=== PATIENT | female | born 2000 ===

== ENCOUNTER 2023-07-26 18:32 | Inpatient (IN) | payer BC ==
[2023-07-26 19:58] LABS: BILIRUBIN,URINE NEGATIVE (NEGATIVE); COLOR,URINE YELLOW; GLUCOSE,URINE NEGATIVE (NEGATIVE); KETONES,URINE NEGATIVE (NEGATIVE); LEUKOCYTE ESTERASE,URINE SMALL (NEGATIVE); NITRITE,URINE NEGATIVE (NEGATIVE); OCCULT BLOOD,URINE NEGATIVE (NEGATIVE); PROTEIN,URINE NEGATIVE (NEGATIVE); UROBILINOGEN,URINE 0.2 EU/dL (<2.0)
[2023-07-26 20:09] LABS: APPEARANCE,URINE HAZY
[2023-07-26 20:11] LABS: BASOPHILS PERCENT AUTO 0.1 % (0.0-1.5); EOSINOPHILS ABSOLUTE AUTO 0.1 K/uL (0.0-0.7); EOSINOPHILS PERCENT AUTO 0.7 % (0.0-7.0); HEMATOCRIT 39.1 % (36.0-46.0); LYMPHOCYTES ABSOLUTE AUTO 2.2 K/uL (0.6-2.4); LYMPHOCYTES PERCENT AUTO 20.8 % (16.0-40.0); MEAN CORPUSCULAR HEMOGLOBIN 30.7 pg (27.0-32.0); MEAN CORPUSCULAR HGB CONC 33.2 g/dL (31.0-37.0); MEAN CORPUSCULAR VOLUME 92.2 fL (80.0-98.0); MONOCYTES ABSOLUTE AUTO 1.1 K/uL (0.0-0.8); MONOCYTES PERCENT AUTO 10.5 % (0.0-15.0); NEUTROPHILS ABSOLUTE AUTO 7.2 K/uL (1.4-5.7); NEUTROPHILS PERCENT AUTO 67.9 % (48.0-80.0); NRBC ABSOLUTE 0 K/uL; PLATELET COUNT,PLT 202 K/uL (150-400); RED BLOOD CELL COUNT 4.24 M/uL (4.30-5.90); WHITE BLOOD CELL COUNT,WBC 10.63 K/uL (4.0-11.0)
[2023-07-26 20:19] LABS: CREATININE,URINE RAND 37.4 mg/dL
[2023-07-26 20:20] LABS: PROTEIN,URINE RANDOM < 6.0 mg/dL (<11.9)
[2023-07-26 20:39] LABS: A/G RATIO 0.8 (0.9-1.6); ALBUMIN 2.8 g/dL (3.4-5.0); BILIRUBIN TOTAL 0.3 mg/dL (0.2-1.0); CARBON DIOXIDE,CO2 20.8 mmol/L (21.0-32.0); CREATININE 0.6 mg/dL (0.6-1.0); EST CRCL DRUG DOSING (CG) 145.85 mL/min; POTASSIUM,K 3.8 mmol/L (3.5-5.1); PROTEIN TOTAL,TP 6.4 g/dL (6.4-8.2); URIC ACID 3.9 mg/dL (2.6-7.2)
[2023-07-26] MEDS ORDERED: Misoprostol 200 MCG Tab PO PRN (21:12)
[2023-07-26] MEDS ORDERED: Sodium Chloride 0.9% 2.5 ML Syringe FLUSH PRN (21:12)
[2023-07-26] MEDS ORDERED: Simethicone 80 MG Tab.Chew PO PRN (21:12)
[2023-07-26] MEDS ORDERED: Misoprostol 25 MCG (1/4 of 100 MCG) Tab VAG PRN ×2 (21:12)
[2023-07-26] MEDS ORDERED: Lanolin 100% Cream 7 GM Tube TOP PRN (21:12)
[2023-07-26] MEDS ORDERED: Temazepam 15 MG Cap PO PRN (21:12)
[2023-07-26] MEDS ORDERED: Carboprost Tromethamine 250 MCG/1 mL Vial IM PRN (21:12)
[2023-07-26] MEDS ORDERED: Tranexamic Acid IN NACL,ISO-OS 1,000 MG in Premix Bag 1 BAG IV PRN ×2 (21:12)
[2023-07-26] MEDS ORDERED: Sodium Chloride 0.9% 10 ML Syringe FLUSH PRN (21:12)
[2023-07-26] MEDS ORDERED: Ondansetron 4 MG/2 ML SDV IVPUSH PRN (21:12)
[2023-07-26] MEDS ORDERED: Witch Hazel Medicated Pads 40/Jar TOP PRN (21:12)
[2023-07-26] MEDS ORDERED: Sodium Chloride 0.9% 20 ML SDV IV PRN (21:12)
[2023-07-26] MEDS ORDERED: Water For Irrigation,Sterile 1,000 ML Container IRR PRN (21:12)
[2023-07-26] MEDS ORDERED: Methylergonovine 0.2 MG/1 ML Amp IM PRN (21:12)
[2023-07-26] MEDS ORDERED: Lidocaine 1% 50 ML MDV INJECT PRN (21:12)
[2023-07-26] MEDS ORDERED: Benzocaine/Menthol 20%-0.5% Spray 78 GM Cannister TOP PRN (21:12)
[2023-07-26] MEDS ORDERED: Bisacodyl 10 MG Supp RECTAL PRN (21:12)
[2023-07-26] MEDS ORDERED: Oxytocin/0.9 % Sodium Chloride 30 UNIT/500 ML BAG IV SCH ×2 (21:15)
[2023-07-26] MEDS ORDERED: Sertraline 100 MG Tab PO SCH (21:30)
[2023-07-27] MEDS: hydrOXYzine Pamoate 25 MG Cap PO SCH ×2 (00:07→04:03)
[2023-07-27] MEDS: Lactated Ringers 1,000 ML IV SCH ×4 (08:37→22:39)
[2023-07-27] MEDS ORDERED: hydrOXYzine Pamoate 25 MG Cap PO PRN (09:17)
[2023-07-27] MEDS ORDERED: Ropivacaine/PF 400 MG/200 ML PCA ONE (12:57)
[2023-07-27] MEDS ORDERED: Dexmedetomidine 200 MCG/2 ML SDV ONE (12:57)
[2023-07-27] MEDS ORDERED: Phenylephrine HCl 0.5 MG/5 ML AMP IVPUSH PRN (13:08)
[2023-07-27] MEDS ORDERED: ePHEDrine 50 MG/ML SDV IVPUSH PRN ×2 (13:08)
[2023-07-27] MEDS ORDERED: Ropivacaine HCl/PF 400 MG in Premix Bag 1 BAG EPIDUR SCH (13:15)
[2023-07-27] MEDS ORDERED: Sertraline 100 MG Tab PO SCH (21:00)
[2023-07-28] MEDS: Acetaminophen 325 MG Tab PO PRN ×2 (02:15→12:35)
[2023-07-28] MEDS: Ibuprofen 800 MG Tab PO PRN ×2 (02:16→12:33)
[2023-07-28 05:57] LABS: PH,UMBILICAL VENOUS 7.269 (7.25-7.45)
[2023-07-28] MEDS ORDERED: HYDROXYZINE PAMOATE 25 MG PO PRN (14:44)
[2023-07-28] MEDS ORDERED: SERTRALINE 100 MG PO SCH (21:00)
[2023-07-28] MEDS: Docusate Sodium 100 MG Cap PO PRN (21:26)
[2023-07-29 06:02] LABS: HEMATOCRIT 31.9 % (36.0-46.0); HEMOGLOBIN 10.5 g/dL (12.0-16.0); MEAN CORPUSCULAR HEMOGLOBIN 30.6 pg (27.0-32.0); MEAN CORPUSCULAR HGB CONC 32.9 g/dL (31.0-37.0); MEAN PLATELET VOLUME 8.4 fL (7.40-12.00); RED BLOOD CELL COUNT 3.43 M/uL (4.30-5.90); WHITE BLOOD CELL COUNT,WBC 11.07 K/uL (4.0-11.0)
[2023-07-29] MEDS: Acetaminophen 325 MG Tab PO PRN (08:49)
[2023-07-29] MEDS: Docusate Sodium 100 MG Cap PO PRN (08:51)
== END 2023-07-29 12:28 | disposition home or self-care (01) | DRG 560 ==
LOC: MW.OB 18:32 → MW.OBCHECK 18:32 → MW.OB 21:00 → OBSVTOIN 07-28 00:48 → MW.OB 07-28 04:00
PROVIDERS: ADMIT Obstetrics & Gynecology; ATTEND Obstetrics & Gynecology
PROC: 10E0XZZ Delivery of Products of Conception, External Approach (ICD-10-PCS; principal; 2023-07-28)
PROC: 0HQ9XZZ Repair Perineum Skin, External Approach (ICD-10-PCS; 2023-07-28)
PROC: 3E0R3BZ Introduction of Anesthetic Agent into Spinal Canal, Percutaneous Approach (ICD-10-PCS; 2023-07-28)
PROC: 00HU33Z Insertion of Infusion Device into Spinal Canal, Percutaneous Approach (ICD-10-PCS; 2023-07-28)
PROC: 10907ZC Drainage of Amniotic Fluid, Therapeutic from Products of Conception, Via Natural or Artificial Opening (ICD-10-PCS; 2023-07-28)
PROC: 3E033VJ Introduction of Other Hormone into Peripheral Vein, Percutaneous Approach (ICD-10-PCS; 2023-07-28)
PROC: 3E0P7VZ Introduction of Hormone into Female Reproductive, Via Natural or Artificial Opening (ICD-10-PCS; 2023-07-28)
DX: O13.4 Gestational [pregnancy-induced] hypertension without significant proteinuria, complicating childbirth (principal); Z37.0 Single live birth; Z3A.39 39 weeks gestation of pregnancy; O99.344 Other mental disorders complicating childbirth; F41.9 Anxiety disorder, unspecified; F32.A Depression, unspecified; O69.81X0 Labor and delivery complicated by cord around neck, without compression, not applicable or unspecified; O70.0 First degree perineal laceration during delivery; Z90.89 Acquired absence of other organs
CPT/HCPCS: 01967; 36415; 51702; 59025; 59409; 80053; 81003; 82570; 82803; 83615; 84156; 84550; 85025; 85027; 86592; 86850; 86900; 86901; A9270-GY; J2795; J3490

== ENCOUNTER 2024-07-16 14:30 | Emergency (ER) | payer SELFPAY | END 2024-07-16 17:03 | disposition left against medical advice (07) | LOC: MW.ED 14:30 | DX: Z53.21 Procedure and treatment not carried out due to patient leaving prior to being seen by health care provider (principal) ==